=== PATIENT | female | born 1955 | race Caucasian/White ===

== ENCOUNTER → 2023-11-30 10:27 | Outpatient (REF) | payer OTHER, SELFPAY | LOC: WDC 10:27 | PROVIDERS: ATTENDING PHYSICIAN Nurse Practitioner Adult Health; FAMILY PHYSICIAN Family Medicine | DX: Z12.31 Encounter for screening mammogram for malignant neoplasm of breast (principal) | CPT/HCPCS: 77063; 77067 ==

== ENCOUNTER 2024-03-20 09:57 | Emergency (ER) | payer OTHER, SELFPAY ==
[2024-03-20 10:21] VITALS: BP 112/78
[2024-03-20 10:50] VITALS: BP 128/74
--- NOTE | 2024-03-20 11:12 | EDRN ---
Labs drawn, pt asking to lay down, situated in wheelchair and assisted her with elevating her legs.
[2024-03-20 11:22] LABS: % Basophils 0.2 % (0-2); % Eosinophils 0.3 % (0-6); % Immature Granulocytes 0.3 % (0-0.5); % Monocytes 3.8 % (1.7-9.3); % Neutrophils 93.4 % (42.2-75.2); Absolute Lymphocytes 0.2 10^3/uL (1.2-3.4); Absolute Monocytes 0.4 10^3/uL (0.1-0.6); Absolute Neutrophils 10.2 10^3/uL (1.4-6.5); Hematocrit 41.3 % (37.0-47.0); Hemoglobin 13.8 g/dL (12.0-16.0); Mean Corp Hgb Conc. 33.4 g/dL (33.0-37.0); Mean Corpuscular Hgb 29.8 pg (27.0-31.0); Mean Corpuscular Volume 89.2 fL (81.0-99.0); Mean Platelet Volume 9.1 fL (7.4-10.4); Nucleated Red Blood Cells % 0 %; Platelet Count 224 10^3/uL (130-400); Red Blood Cell Count 4.63 10^6/uL (4.20-5.40); Red Cell Dist. Width 12.7 % (11.5-14.5); White Blood Cell Count 10.9 10^3/uL (4.8-10.8)
[2024-03-20 11:33] LABS: ALT (SGPT) 20 U/L (0-35); AST (SGOT) 28 U/L (14-36); Albumin 4.3 g/dl (3.5-5.0); Alkaline Phosphatase 82 U/L (38-126); Blood Urea Nitrogen 20 mg/dl (7-17); Carbon Dioxide 24 mmol/L (22-30); Chloride 106 mmol/L (98-107); Glucose 138 mg/dl (70-99); Lipase 64 U/L (23-300); Potassium 3.6 mmol/L (3.5-5.1); Sodium 139 mmol/L (135-145); Total Bilirubin 0.9 mg/dl (0.2-1.3); Total Protein 6.7 g/dl (6.3-8.2); eGFR > 60.00
[2024-03-20 12:36] VITALS: BP 128/69
== END 2024-03-20 12:36 | disposition left against medical advice (07) ==
LOC: EMR 09:57
PROVIDERS: EMERGENCY PHYSICIAN Emergency Medicine
DX: R11.2 Nausea with vomiting, unspecified (principal); R19.7 Diarrhea, unspecified; Z53.21 Procedure and treatment not carried out due to patient leaving prior to being seen by health care provider
CPT/HCPCS: 80053; 83690; 85025

== ENCOUNTER → 2024-09-21 10:53 | Outpatient (REF) | payer OTHER, SELFPAY | LOC: PAVMRI 10:53 | PROVIDERS: ATTENDING PHYSICIAN Orthopaedic Surgery; FAMILY PHYSICIAN Family Medicine | DX: M25.561 Pain in right knee (principal) | CPT/HCPCS: 73721 ==

== ENCOUNTER → 2024-11-07 08:41 | Outpatient (REF) | payer OTHER, SELFPAY ==
[2024-11-07 09:17] LABS: Hematocrit 42.7 % (37.0-47.0); Hemoglobin 13.6 g/dL (12.0-16.0); Mean Corp Hgb Conc. 31.9 g/dL (33.0-37.0); Mean Corpuscular Volume 91.0 fL (81.0-99.0); Nucleated Red Blood Cells % 0 %; Platelet Count 221 10^3/uL (130-400); Red Cell Dist. Width 13.1 % (11.5-14.5)
[2024-11-07 10:06] LABS: Blood Urea Nitrogen 17 mg/dl (7-17); Calcium 8.9 mg/dl (8.4-10.2); Carbon Dioxide 25 mmol/L (22-30); Chloride 107 mmol/L (98-107); Glucose 63 mg/dl (70-99); Potassium 4.1 mmol/L (3.5-5.1); Sodium 140 mmol/L (135-145); eGFR > 60.00
== END ==
LOC: RCS 08:41
PROVIDERS: ATTENDING PHYSICIAN Orthopaedic Surgery; FAMILY PHYSICIAN Family Medicine
DX: Z01.818 Encounter for other preprocedural examination (principal)
CPT/HCPCS: 36415; 80048; 85025; 93005

== ENCOUNTER 2024-11-28 06:31 | Day surgery (SDC) | payer OTHER, SELFPAY | END 2024-11-28 10:55 | disposition home or self-care (01) | LOC: GI 06:31 | PROVIDERS: ATTENDING PHYSICIAN Internal Medicine Gastroenterology | DX: Z12.11 Encounter for screening for malignant neoplasm of colon (principal); K63.5 Polyp of colon; K57.30 Diverticulosis of large intestine without perforation or abscess without bleeding; Q43.8 Other specified congenital malformations of intestine; K64.8 Other hemorrhoids; K29.70 Gastritis, unspecified, without bleeding; K31.A11 Gastric intestinal metaplasia without dysplasia, involving the antrum; K22.89 Other specified disease of esophagus; K31.89 Other diseases of stomach and duodenum; Z86.0101 Personal history of adenomatous and serrated colon polyps | CPT/HCPCS: 45385; 43238; 88305; 88342 ==

== ENCOUNTER → 2024-12-05 09:29 | Outpatient (REF) | payer OTHER, SELFPAY | LOC: WDC 09:29 | PROVIDERS: ATTENDING PHYSICIAN Nurse Practitioner Adult Health; FAMILY PHYSICIAN Family Medicine | DX: M85.89 Other specified disorders of bone density and structure, multiple sites (principal); Z12.31 Encounter for screening mammogram for malignant neoplasm of breast | CPT/HCPCS: 77063; 77067; 77080 ==

== ENCOUNTER 2024-12-19 09:07 | Outpatient (RCR) | payer OTHER, SELFPAY | END 2024-12-19 23:59 | disposition home or self-care (01) | LOC: RPT 09:07 | PROVIDERS: ATTENDING PHYSICIAN Orthopaedic Surgery; FAMILY PHYSICIAN Family Medicine | DX: Z47.1 Aftercare following joint replacement surgery (principal); Z73.6 Limitation of activities due to disability; R26.2 Difficulty in walking, not elsewhere classified; M62.81 Muscle weakness (generalized); M25.561 Pain in right knee; R26.89 Other abnormalities of gait and mobility; Z96.651 Presence of right artificial knee joint | CPT/HCPCS: 97110; 97161; 97530 ==

== ENCOUNTER 2025-01-20 09:18 | Outpatient (RCR) | payer OTHER, SELFPAY | END 2025-01-20 23:59 | disposition home or self-care (01) | LOC: RPT 09:18 | PROVIDERS: ATTENDING PHYSICIAN Orthopaedic Surgery; FAMILY PHYSICIAN Family Medicine | DX: Z47.1 Aftercare following joint replacement surgery (principal); Z73.6 Limitation of activities due to disability; R26.2 Difficulty in walking, not elsewhere classified; M62.81 Muscle weakness (generalized); M25.561 Pain in right knee; Z96.651 Presence of right artificial knee joint; R26.89 Other abnormalities of gait and mobility | CPT/HCPCS: 97010; 97110; 97116; 97530 ==

== ENCOUNTER 2025-02-13 09:21 | Outpatient (RCR) | payer OTHER, SELFPAY | END 2025-02-13 23:59 | disposition home or self-care (01) | LOC: RPT 09:21 | PROVIDERS: ATTENDING PHYSICIAN Orthopaedic Surgery; FAMILY PHYSICIAN Family Medicine | DX: Z47.1 Aftercare following joint replacement surgery (principal); Z96.651 Presence of right artificial knee joint; Z73.6 Limitation of activities due to disability; R26.2 Difficulty in walking, not elsewhere classified; M62.81 Muscle weakness (generalized); R26.89 Other abnormalities of gait and mobility; M25.561 Pain in right knee | CPT/HCPCS: 97010; 97110; 97112; 97530 ==

== ENCOUNTER 2025-02-19 04:29 | Inpatient (IN) | payer OTHER, SELFPAY ==
[2025-02-18 21:27] VITALS: BP 115/73
[2025-02-18 21:46] VITALS: BP 104/53
[2025-02-18 22:00] VITALS: BP 101/61
[2025-02-18] MEDS: TYLENOL 1000 MG PO (22:25)
[2025-02-18] MEDS: ZOFRAN 4 MG IV (22:25)
[2025-02-18] MEDS: NSS 2000 IV (22:25)
--- NOTE | 2025-02-18 22:26 | ED.GENMED ---
History of Present Illness
General
Chief Complaint: Fever
Source: patient and family
Exam Limitations: none
Time Seen by Provider: 02/18/25 21:48
History of Present Illness
History of Present Illness:
69-year-old female for 5 days of fever body aches headache nausea back pain mild cough decreased decreased urine output, has not been vaccinated for the flu or COVID started Tamiflu today took 1 dose
Past History
Past History
ED Past Medical History: GERD and Other (Diverticulitis, Pollack's esophagus, hysterectomy, tonsil and adenoidectomy, partial thyroidectomy)
ED Past Surgical History: Gynecological (Hysterectomy), Orthopedic (Right total knee 9 weeks ago), Tonsilectomy and Other (Partial thyroidectomy)
Social History
Tobacco: Non-smoker
Alcohol: None
Drug: None
Personal:
Living: with family
Employment: Employed
Family History
Family History: Other
Review of Systems
Review of Systems
All Other Systems: Not applicable
Constitutional: Reports fever and fatigue
EENT: Denies sore throat
Respiratory: Reports cough; Denies trouble breathing
Cardiac: Reports no symptoms
ABD/GI: Reports nausea; Denies abdominal pain or vomiting
: Reports flank pain
Musculoskeletal: Reports muscle stiffness; Denies joint pain
Neurological: Reports headache and weakness
Endocrine: Reports no symptoms
Hematologic/Lymphatic: Reports no symptoms
Psychiatric: Reports no symptoms
Phy Exam
Physical Exam
Physical Exam:
Physical Exam
General: Nontoxic 69-year-old female clear mental status
Neck: Lips are slightly dry
Heart: Tachycardic
Lungs: No wheeze
Abdomen: Soft
Neuro: alert and oriented. no focal neurological deficits
Skin: no rash
Psychiatric: well kept. interactive and cooperative
Extremities: Right total knee scar clean dry and intact no pain to range of motion of the knee no calf pain bilateral
Course
Orders/Labs/Results
Orders:
Orders
02/18/25 21:31
Electrocardiogram (*1) Urgent
Reason for Study: Chest Pain
02/18/25 21:32
EKG- Treatment ONCE
02/18/25 22:19
0.9% Sodium Chloride 1000 ml [Nss] 2,000 ml IV BOLUS
Acetaminophen [Tylenol] 1,000 mg PO NOW STA
Ondansetron Injectable [Zofran] 4 mg IV NOW STA
02/18/25 22:20
Urinalysis Reflex To Culture Urgent
Date Specimen was Collected: 02/18/25
Time Specimen was Collected: 22:22
CR Chest - 2 Views Urgent
Comment:
Reason For Exam: fever
02/18/25 22:27
CMP [Comprehensive Metabolic Panel] Urgent
COVID-19 Antigen Urgent
Source: Nasal Swab
Complete Blood Count/With Diff Urgent
Lipase Urgent
Comment: ADD ON
Influenza A+B Rapid Molecular Urgent
CINTIA Source: Nasal Swab
Specimen Description:
02/18/25 23:04
Add On- LAB Urgent
Tests Added?: lipase
US Abdomen Complete/Upper Urgent
Comment:
Reason For Exam: Fever elevated LFTs
02/19/25 01:06
CT Abd/pelvis W Iv Cont Urgent
Comment:
Reason For Exam: fever low bp
02/19/25 01:20
Ondansetron Injectable [Zofran] 4 mg IV NOW STA
Piperacillin/Tazo 3.375 Gram [Zosyn] 3.375 gram in 50 ml IV NOW
02/19/25 01:32
Lactic Acid Q4H
Comment: CANCEL 2nd LACTIC ACID IF 1st LACTIC ACID IS LESS THAN 2
Blood Culture Q30M
CINTIA Source: Blood/Venous
Specimen Description:
Blood Culture Q30M
CINTIA Source: Blood/Venous
Specimen Description:
02/19/25 05:30
Lactic Acid Q4H
Comment: CANCEL 2nd LACTIC ACID IF 1st LACTIC ACID IS LESS THAN 2
Abnormal Lab Results
02/18/25
22:27
Plt Count 112 L 10^3/uL
(130-400)
Absolute Lymphs (auto) 0.3 L 10^3/uL
(1.2-3.4)
Immature Gran % 0.6 H %
(0-0.5)
Neutrophils % 85.9 H %
(42.2-75.2)
Lymphocytes % 4.4 L %
(20.5-51.1)
Sodium 130 L mmol/L
(135-145)
Glucose 100 H mg/dl
(70-99)
AST 129 H U/L
(14-36)
ALT 138 H U/L
(0-35)
Alkaline Phosphatase 280 H U/L
(38-126)
Total Protein 6.2 L g/dl
(6.3-8.2)
Lipase 448 H U/L
(23-300)
02/18/25 22:27
02/18/25 22:27
Vital Signs
Initial and Last Documented VS:
Initial Vital Signs
Temp Pulse Resp BP Pulse Ox
99.2 F 128 20 115/73 99
02/18/25 21:27 02/18/25 21:27 02/18/25 21:27 02/18/25 21:27 02/18/25 21:27
Last Documented Vital Signs
Temp Pulse Resp BP Pulse Ox
99.2 F 102 34 88/51 97
02/18/25 21:27 02/18/25 22:38 02/18/25 22:38 02/18/25 23:00 02/19/25 00:20
MDM/Problems Addressed
Differential Diagnosis Includes:
Influenza COVID pneumonia viral syndrome doubt [employer]PER[employer] infection
MDM/Problems Addressed:
Fever
*Radiology
Radiology exam reviewed: radiology read reviewed
*Pulse Oximetry
SaO2: 98
Oxygen Mode of Delivery: Room air
Patient hypoxic: no
*Systems Applications Programming Lead Interpretation
Rate: tachycardiac
Interpretation: abnormal
Heart Rate: 120
Rhythm: sinus
*Critical Care Note
Total Time (30-74mins, 75-104mins- exclusive of procedures): 30
Update Note
Update Note:
Update, ultrasound report noted chest x-ray noted formal report pending labs are noted awaiting urinalysis
2:20 AM patient with hypotension in the 80s responding to fluids still around 100 systolic after 2 L cultures have been sent urinalysis obtained will check CT of the abdomen to rule out anything intra-abdominal he this point I believe it would be
prudent to admit her to the hospital for sepsis syndrome
ED Attending Note
-
Portions of this chart may have been created with voice recognition software.� Occasional wrong word or��sound alike� substitutions may have occurred due to the inherent limitations of voice recognition software.
Discharge Plan
Departure
Patient Disposition: Admit
Date of Disposition: 02/19/25
Time of Disposition: 02:26
Admit to: IMU
Presentation/result/management discussed w/ accepting MD/DO: Hospitalist
Patient with high blood pressure during this ER visit?: No
Condition: Good
Discharge Problem:
Sepsis syndrome
Prescriptions:
No Action
multivitamin [Daily Multiple] 1 EACH tablet
1 ea PO DAILY
pantoprazole 40 MG tablet,delayed release (DR/EC)
40 mg PO DAILY PRN (Reason: indigestion)
ondansetron HCl 4 MG tablet
4 mg PO TIDPRN PRN (Reason: nausea and vomiting) Qty: 10 0RF
lorazepam 0.5 MG tablet
0.25 mg PO PRN PRN (Reason: anxiety)
ondansetron 4 MG tablet,disintegrating
4 mg PO TIDPRN PRN (Reason: nausea/vomiting) Qty: 12 0RF
Referrals:
Paulino Guthrie MD [Family Provider, Family Practice]
Interventions
Interventions:
*Risk Screen - Suicide Last Done: 02/18/25 21:27
*General Assessment Last Done: 02/18/25 22:02
*Neglect/Abuse Screening Last Done: 02/18/25 21:27
ED- Neurological Assessment Last Done: 02/18/25 22:02
ED-Skin Assessment Last Done: 02/19/25 00:30
Discharge Date and Time
Print Language: BULGARIAN
[2025-02-18 22:47] VITALS: BP 91/56
[2025-02-18 22:51] LABS: Hematocrit 39.6 % (37.0-47.0); Hemoglobin 13.4 g/dL (12.0-16.0); Mean Corp Hgb Conc. 33.8 g/dL (33.0-37.0); Mean Corpuscular Volume 83.7 fL (81.0-99.0); Nucleated Red Blood Cells % 0 %; Platelet Count 112 10^3/uL (130-400); Red Cell Dist. Width 13.4 % (11.5-14.5)
[2025-02-18 22:59] LABS: ALT (SGPT) 138 U/L (0-35); AST (SGOT) 129 U/L (14-36); Albumin 3.5 g/dl (3.5-5.0); Alkaline Phosphatase 280 U/L (38-126); Blood Urea Nitrogen 16 mg/dl (7-17); Calcium 8.8 mg/dl (8.4-10.2); Carbon Dioxide 26 mmol/L (22-30); Chloride 101 mmol/L (98-107); Glucose 100 mg/dl (70-99); Potassium 3.9 mmol/L (3.5-5.1); Sodium 130 mmol/L (135-145); Total Protein 6.2 g/dl (6.3-8.2); eGFR > 60.00
[2025-02-18 23:00] VITALS: BP 88/51
[2025-02-18 23:05] LABS: COVID-19 Antigen Negative (Negative)
[2025-02-18 23:19] LABS: Lipase 448 U/L (23-300)
[2025-02-19] VITALS (13 sets, daily range): BP systolic 89–120; BP diastolic 56–70; PULSE 93–107; BMI 23.5
[2025-02-19] MEDS: ZOFRAN 4 MG IV ×2 (01:39→06:04)
[2025-02-19] MEDS: ZOSYN 50 IV ×4 (01:39→20:00)
[2025-02-19 02:28] LABS: Urine Character Clear (Clear)
[2025-02-19 02:52] LABS: Urine Red Blood Cell 0-2 /HPF (0-2)
[2025-02-19 02:53] LABS: Urine Squamous Cell 16-20 /LPF (Few)
--- NOTE | 2025-02-19 03:57 | HPS.HSE ---
Family Physician
-
Family Physician: Paulino Guthrie
Chief Complaint
-
Fever, Myalgias
History of Present Illness
Patient is a 69y F with PMH significant for arthritis and anxiety who presents to ED complaining of fevers / chills, sweats, nausea and diffuse myalgias. Patient states that her symptoms started on Thursday evening. She has had fevers / chills
and diaphoresis each evening since that time. She has been taking Tylenol ATC with minimal improvement in her symptoms. She complains of pain all over - including headache, back pain and myalgias - especially the legs / thighs. She complains of
severe nausea with multiple episodes of dry heaves but no actual emesis. She has had few paroxysms of non-productive cough. She complains of dry mouth and notes that she has been drinking a lot of water to try and stay hydrated. She has no been
eating much. No diarrhea, bloody stools. No dysuria, frequency, etc.
No known sick contacts. No recent travel.
Patient contacted her PCP and received a Rx for Tamiflu based on her symptoms. She took a single dose of this on Thursday AM.
Patient underwent R TKA about 9 weeks ago (Dr. Reid). She was recovering well until this incident. She denies any specific increase in R knee pain, redness, etc. She has completed her post-op ASA course for DVT prevention.
Patient was initially hypotensive in the ED with systolic blood pressure of 88. She responded to IVF resuscitation thus far.
Medical History
Past Medical History
Past Medical History: Reports Other
Additional Past Medical History:
Osteoarthritis
Osteopenia
Anxiety
GERD / Pollack's Esophagus
Past Surgical History: Reports Other
Additional Past Surgical History:
R TKA (9 weeks ago - Dr. Reid)
L TKA
T&A
CLAIRE
Breast Biopsies (multiple) - all negative
Left Thyroidectomy
Social History
Tobacco: Former Smoker (Quit smoking 35 years ago.)
Alcohol: Occasional
Drug: None
Family History
Family History: Not pertinent
Allergies / Home Medications
Allergies reflects when Allergies were last updated in [facility].
Home Medications with original date entered in [facility]
Allergy/Medication List:
Allergies
Allergy/AdvReac Type Severity Reaction Status Date / Time
No Known Allergies Allergy Verified 03/20/24 10:23
Home Medications
lorazepam 0.5 mg tablet 0.25 mg PO PRN PRN anxiety 06/05/19
diclofenac sodium 75 mg tablet,delayed release 75 mg PO BIDPRN PRN Pain 02/19/25
tramadol 50 mg tablet 50 mg PO DAILYPRN PRN Pain 02/19/25
Review of Systems
-
History Source: Patient
A 12 point ROS was completed and negative except as noted: Yes
Constitutional: Reports Fever, Fatigue and Chills
EENT: Denies Sore Throat or Runny Nose
Respiratory: Reports Cough; Denies Hemoptysis or Trouble Breathing
Cardiac: Reports Diaphoresis; Denies Chest Pain or Palpitations
Abdomen/GI: Reports Nausea and Anorexia; Denies Abdominal Pain, Vomiting, Diarrhea or Constipated
: Denies Dysuria, Frequency or Flank Pain
Musculoskeletal: Reports Muscle Pain; Denies Joint Pain or Joint Swelling
Neurological: Reports Headache; Denies Dizzy
Psych: Denies Depression or Anxiety
Physical Exam
Vital Signs
Vital Signs
Temp Pulse Resp BP Pulse Ox
98.8 F 102 34 100/56 98
02/19/25 03:23 02/18/25 22:38 02/18/25 22:38 02/19/25 02:13 02/19/25 02:30
Physical Exam
General: Other (69y F in no acute distress.)
HEENT: Other (Dry MM.)
Respiratory: Clear; No Wheezes, Rales or Rhonchi
Cardiac: S1/S2 and Tachycardia; No Murmur
GI: Soft, Non Distended, Normal Bowel Sounds and Other (Mild lower abdominal tenderness without rebound / guarding.)
Musculoskeletal: No Clubbing, No Cyanosis, No Edema and Other (R TKA site appears well-healed. No erythema, induration, etc. Good ROM at the R knee.)
Neuro: AO x 3 and Nonfocal/grossly intact
Laboratory Results
-
02/18/25 22:27
02/18/25 22:
Laboratory Results
Lactic Acid Cancelled 02/19/25 05:30
Total Bilirubin 1.0 mg/dl (0.2-1.3) 02/18/25 22:
AST 129 U/L (14-36) H 02/18/25 22:
ALT 138 U/L (0-35) H 02/18/25 22:
Alkaline Phosphatase 280 U/L (38-126) H 02/18/25 22:
Lipase 448 U/L (23-300) H 02/18/25 22:
Impression/Plan
-
A/P: Patient is a 69y F with PMH significant for anxiety and arthritis who presents to ED complaining of fevers, chills, nausea and myalgias x several days.
Febrile Illness
Clinical Sepsis
Abnormal LFTs
Mild Thrombocytopenia
- Admit for further evaluation and treatment.
- Patient presents with febrile illness (102 repeatedly at home). Evidence of organ dysfunction in the form of hypotension requiring fluid resuscitation and borderline thrombocytopenia.
- No clear source identified thus far. Symptoms would seem to suggest enteritis / GI origin versus generalized viral syndrome.
- COVID / Flu are negative in the ED.
- CXR, CT A/P and US Abd all unremarkable.
- Urinalysis not suggestive of infection.
- Will check R knee x-ray - though it does not appear infected by exam.
- Check blood parasite smear and hepatitis panels given abnormal LFTs / thrombocytopenia.
- Continue empiric abx for now pending clinical improvement, culture data, etc.
- IVF support +/- pressor support if needed to maintain perfusion.
- Infectious Disease evaluation for additional recommendations.
- Follow for any new / focal complaints. Follow fever curve.
Mild Hyponatremia
- ? ADH release secondary to persistent nausea.
- Antiemetics, IVFs, etc. Follow for improvement.
Arthritis
- Stable. Continue PRN pain control.
Anxiety
- Stable. Continue PRN lorazepam.
DVT Prophylaxis: Check US to rule out DVT given recent orthopedic surgery. Lovenox.
Code Status: Full
--- NOTE | 2025-02-19 05:30 | PTCARENOTE ---
Pt. arrived from [facility], AAO x 3, vs stable, ST on monitor, IVF's infusing, call rojas within reach.
[2025-02-19] MEDS: VANCOCIN 540 MG IV (06:05)
[2025-02-19] MEDS: NSS 1000 IV ×2 (06:06→17:26)
[2025-02-19 06:31] LABS: Hematocrit 39.1 % (37.0-47.0); Hemoglobin 12.8 g/dL (12.0-16.0); Mean Corp Hgb Conc. 32.7 g/dL (33.0-37.0); Mean Corpuscular Volume 84.8 fL (81.0-99.0); Platelet Count 117 10^3/uL (130-400); Red Cell Dist. Width 13.6 % (11.5-14.5)
[2025-02-19 06:42] LABS: ALT (SGPT) 127 U/L (0-35); AST (SGOT) 111 U/L (14-36); Albumin 3.0 g/dl (3.5-5.0); Alkaline Phosphatase 246 U/L (38-126); Blood Urea Nitrogen 12 mg/dl (7-17); Calcium 8.3 mg/dl (8.4-10.2); Carbon Dioxide 24 mmol/L (22-30); Chloride 104 mmol/L (98-107); Estimated Creatinine Clearance 82 ml/min; Glucose 87 mg/dl (70-99); Potassium 3.8 mmol/L (3.5-5.1); Sodium 133 mmol/L (135-145); Total Protein 5.5 g/dl (6.3-8.2); eGFR > 60.00
--- NOTE | 2025-02-19 07:36 | PHA.VAN.IN ---
Assessment
- Assessment
Renal Function: Appears similar to baseline
Concomitant Antimicrobials: zosyn
AUC Dosing Plan
- Dosing Variables
Dosing Weight (kg): 66.03
Dosing CrCl (ml/min): 82
Vd coefficient (L/kg): 0.7
- Empiric Dosing
Initial / Loading Dose: 2000mg
Maintenance Regimen: 750mg q12h
Estimated AUC (mcg*h/mL): 464
Estimated Peak (mcg*h/mL): 27.9
Estimated Trough (mcg/ml): 12.6
Estimated Half Life (H): 9.6
- Monitoring
No levels ordered at this time: consider at steady state
Pharmacokinetics Vancomycin I
- -
Patient Age: 69
Patient Sex: Female
Vancomycin Day #: 1
Indication: Bacteremia
Requesting Provider: Dr. Galan
Pertinent Antimicrobial Allergies:
nkda
Height / Weight:
Height 5 ft 6 in
Actual Weight 66.026 kg
IBW in k.3
- Vital Signs / Lab Results
Temp Pulse Resp BP Pulse Ox
99.7 F 102 22 104/64 96
02/19/25 05:37 02/19/25 05:37 02/19/25 05:37 02/19/25 05:37 02/19/25 05:37
Lab Results - Hematology
02/18/25 02/19/25
22:27 05:57
WBC 7.2 5.9
Lab Results - Chemistry
02/18/25 02/19/25
22:27 05:56
BUN 16 12
Creatinine 0.6 0.6
Estimated Creat Clear 82
Albumin 3.5 3.0 L
02/19/25 02/19/25
01:32 05:30
Lactic Acid 0.8 Cancelled
Lab Results - Urine
02/19/25
02:23
Urine Nitrite (Reflex) Negative
Leukocyte Esterase Rfl Negative
Urine WBC (Reflex) 6-10
Ur Squamous Epith Cells 16-20
Urine Bacteria (Reflex) Moderate A
Microbiology Results
02/18/25 22:27 Influenza Types A & B ([facility]) - Final
Nasal Swab Negative for Influenza A & B, NAAT
Negative results must be combined with clinical observations
and patient history.
Nucleic Acid Amplification test (NAAT)performed on the
[employer] platform.
[2025-02-19 08:27] LABS: Hepatitis B Surface Antigen Negative (Negative)
[2025-02-19 08:44] LABS: Hepatitis C Antibody Negative (Negative)
--- NOTE | 2025-02-19 09:55 | W.PN.HOSP.TC ---
Today's Communication/Plan
-
see AP
Assessment / Plan
Assessment / Plan
HPI: 69 yo F with PMH significant for arthritis and anxiety who p/w fevers / chills, sweats, nausea and diffuse myalgias. Patient states that her symptoms started on Thursday evening. She has had fevers / chills and diaphoresis each evening since
that time. She has been taking Tylenol ATC with minimal improvement in her symptoms. She complains of pain all over - including headache, back pain and myalgias - especially the legs / thighs. She complains of severe nausea with multiple episodes
of dry heaves but no actual emesis. She has had few paroxysms of non-productive cough. She complains of dry mouth and notes that she has been drinking a lot of water to try and stay hydrated. She has no been eating much.
No diarrhea, bloody stools. No dysuria, frequency, etc. No known sick contacts. No recent travel.
Patient contacted her PCP and received a Rx for Tamiflu based on her symptoms. She took a single dose on Thursday AM.
Patient underwent R TKA about 9 weeks ago (Dr[address] Reid). She was recovering well until this incident. She denies any specific increase in R knee pain, redness, etc. She has completed her post-op ASA course for DVT prevention.
Patient was initially hypotensive in the ED with systolic blood pressure of 88. She responded to IVF resuscitation thus far.
A/P:
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
# Clinical Sepsis
# Abnormal LFTs
# Mild Thrombocytopenia
Patient presents with febrile illness (102 repeatedly at home). Evidence of organ dysfunction in the form of hypotension requiring fluid resuscitation and borderline thrombocytopenia.
No clear source identified thus far. Symptoms would seem to suggest enteritis / GI origin versus generalized viral syndrome.
COVID / Flu are negative. CXR, CT A/P and US Abd all unremarkable.
Follow formal CT AP report.
Urinalysis not suggestive of infection.
R knee x-ray showed Moderate anterior soft tissue swelling and subcutaneous edema.
Follow BL LE US
Check blood parasite smear, follow blood cultures, urine culture
hepatitis panels showed negative antibody, but pending hep A IgM Ab
Continue empiric abx with Vanc/Zosyn for now
Cont IVF support +/- pressor support if needed to maintain perfusion.
Infectious Disease CS for additional recommendations.
Follow for any new / focal complaints. Follow fever curve.
# Mild Hyponatremia
? ADH release secondary to persistent nausea.
Antiemetics, IVFs, etc.
Follow for improvement.
Sodium level 130 -> 133 today
# Arthritis
Stable. Continue PRN pain control.
# Anxiety
Stable. Continue PRN lorazepam.
DVT Prophylaxis: Follow US to rule out DVT given recent orthopedic surgery. Lovenox SQ for now.
Code Status: Full
DW RN
Anticipated Discharge: 24 - 48 hours
Subjective/Interval History
-
Date of Service: February 19, 2025
Objective Data
-
Labs:
Laboratory Results
02/18/25 02/19/25 02/19/25
22:27 05:56 05:57
WBC 7.2 5.9
Hgb 13.4 12.8
Hct 39.6 39.1
Plt Count 112 L 117 L
Sodium 130 L 133 L
Potassium 3.9 3.8
Chloride 101 104
Carbon Dioxide 26 24
BUN 16 12
Creatinine 0.6 0.6
Glucose 100 H 87
Calcium 8.8 8.3 L
Total Bilirubin 1.0 0.7
AST 129 H 111 H
ALT 138 H 127 H
Alkaline Phosphatase 280 H 246 H
Vital Signs:
Vital Signs
Temp Pulse Resp BP Pulse Ox
37.1 C 102 16 89/66 98
02/19/25 08:15 02/19/25 08:15 02/19/25 08:15 02/19/25 08:15 02/19/25 08:15
Review of Systems
-
History Source: Patient
Constitutional: Reports Fever (at home), Fatigue, Chills, Weakness and Other (generalized pain)
Abdomen/GI: Reports Nausea and Other (dry heaving at home)
Physical Exam
-
General: Well Developed, Well Nourished, No Apparent Distress, Comfortable and Conversant; Negative Respiratory Distress
HEENT: Normocephalic, Atraumatic, Nose Appears Normal and Ears Appear Normal; Negative Oxygen
Respiratory: Clear to Auscultation and Non Labored Respirations; Negative Wheezes, Crackles or Accessory Resp Muscle Use
Cardiac: Regular Rhythm and S1/S2
GI: Soft, Nontender, Nondistended and Normal Bowel Sounds
Skin: Warm and Dry
Neuro: Awake, Alert, Oriented and AO x 3
Psych: Calm and Intact Judgement/Insight
Data Reviewed
-
Ultrasound: Report Reviewed by me
Labs: Labs Reviewed by me
--- NOTE | 2025-02-19 12:05 | CM ---
Patient seen bedside, initial assessment completed. Patient is a 69y F with PMH significant for arthritis and anxiety who presents to ED complaining of fevers / chills, sweats, nausea and diffuse myalgias.
Patient resides w/ spouse in a single story home, 1 step to enter. Patient is independent in ambulation, no device required. Independent w/ ADLs and personal care. Patient has grab bar and shower chair in bathroom. Denies SNF/HC hx. Current w/ OP PT
at ambulatory center twice a week following knee replacement.
Address, point of contact and insurance verified
PCP: Paulino Guthrie
Pharmacy: [facility]
Plan: Home, no needs anticipated
--- NOTE | 2025-02-19 12:30 | CON.ID ---
Consultation
-
Date/Time Consultation Requested: 02/19/2025 0530
Date/Time Consultation Performed: 02/19/2025 1230
Requesting Provider: Dr. Galan
Performing Provider: Dr. Martin
Reason for Consultation: Fever; transaminitis
Chief Complaint / Past History
History of Present Illness
Niyah Castro is a 69-year-old female being evaluated at the request of Dr. Galan in regards to fevers, chills and sweats. History is obtained from chart review, along with patient interview.
Patient reports that symptomatology started approximately 5 days ago, and she has had ongoing fevers, chills and diaphoresis each evening since then. She admits to fevers to 102.8 degrees. She notes pain and bodyaches throughout her body. She
admits to headache and myalgias especially in the legs and thighs. She contacted her PCP and received prescription for Tamiflu based upon her symptoms and she took a single dose yesterday AM. She notes that she has been taking Tylenol 1 gm every
4-5 hours through the week.
She notes no sick contacts. She notes no ticks on her body. She does have a dog, but the lawn and the dog are treated for ticks. She denies any travel.
At presentation she was noted to be 100.4 degrees, but temperatures have improved since then. She did not have an elevated white count, but did have a left shift. She has been started on empiric antibiotics, and Infectious Diseases is asked to
comment on further antibiotic therapy.
Past History
Additional Past Medical History:
GERD
Diverticulitis
Pollack's esophagus
Osteoarthritis
Anxiety
Additional Past Surgical History:
Hysterectomy
Tonsillectomy
Partial thyroidectomy
Right TKA
Allergy History:
No Known Allergies Allergy (Verified 03/20/24 10:23)
Medications Reviewed: Yes
Current Antibiotics:
Vancomycin 750 mg IV q.12 hours
Zosyn 3.375 gm IV q.6 hours
Social History
Tobacco: Non-Smoker
Alcohol: None
Drug: None
Living: With Family
Employment: Employed
Family History
Family History: Not Pertinent
Review of Systems
Vital Signs
Temp Pulse Resp BP Pulse Ox
99.1 F 93 12 99/61 96
02/19/25 11:08 02/19/25 11:08 02/19/25 11:08 02/19/25 11:08 02/19/25 11:08
Physical Exam
Physical Exam
Constitutional: No Acute Distress, Comfortable and Non-toxic
Eyes: No Conjunctival Hemorrhage and Sclera Anicteric
Oral: No Thrush and No Ulcers
Cardiovascular: Regular Rate and S1/S2; Negative S3/S4
Pulmonary: Clear; Negative Wheezes, Rales or Rhonchi
Gastrointestinal: Soft, Non Tender, Non Distended, Normal Bowel Sounds, No Rebound and No Guarding
Genito-Urinary: Negative Moore
Extremities: Negative Edema, Cyanosis, Erythema, Splinter Hemorrhage or Venous Insufficiency
Musculoskeletal: Negative Joint Swelling
Skin: Warm and Dry; Negative Rash or Jaundice
Wound: None
Neurological: Awake, Alert and Oriented
Psychological: Calm
Lab / Diagnostic Study Results
02/19/25 05:57
02/19/25 05:56
Abs Immat Gran (auto) 0.0 10^3/uL (0-0.05) 02/18/25 22:27
Absolute Neuts (auto) 6.2 10^3/uL (1.4-6.5) 02/18/25 22:27
Absolute Lymphs (auto) 0.3 10^3/uL (1.2-3.4) L 02/18/25 22:27
Absolute Monos (auto) 0.5 10^3/uL (0.1-0.6) 02/18/25 22:27
Absolute Basos (auto) 0.0 10^3/uL (0-0.2) 02/18/25 22:27
Immature Gran % 0.6 % (0-0.5) H 02/18/25 22:27
Neutrophils % 85.9 % (42.2-75.2) H 02/18/25 22:27
Lymphocytes % 4.4 % (20.5-51.1) L 02/18/25 22:27
Monocytes % 6.9 % (1.7-9.3) 02/18/25 22:27
Eosinophils % 1.9 % (0-6) 02/18/25 22:27
Basophils % 0.3 % (0-2) 02/18/25 22:27
Lactic Acid Cancelled 02/19/25 05:30
Ur Squamous Epith Cells 16-20 /LPF (Few) 02/19/25 02:23
Microbiology Results
Micro:
02/19/25 05:57 Blood Parasites Smear - No parasites seen (Preliminary)
Blood/Venous
02/19/25 02:23 Urine Culture - Pending
Urine
02/19/25 01:32 Blood Culture - Pending
Blood/Venous
02/19/25 01:32 Blood Culture - Pending
Blood/Venous
02/18/25 22:27 Influenza Types A & B ([facility]) - Final
Nasal Swab Negative for Influenza A & B, NAAT
Negative results must be combined with clinical observations
and patient history.
Nucleic Acid Amplification test (NAAT)performed on the
[employer] platform.
Imaging:
02/19/2025 Duplex ultrasound lower extremities: no sonographic evidence for lower extremity DVT
02/19/2025 X-ray right knee: moderate amount of anterior soft tissue swelling and subcutaneous edema. Right total knee arthroplasty in place without radiographic evidence for loosening.
02/19/2025 abdomen/pelvis CT: report pending
02/18/2025 Abdominal ultrasound: mild diffuse liver disease. No sonographic evidence for cholelithiasis, acute cholecystitis or biliary obstruction.
02/18/2025 CXR (2 view): no radiographic evidence for pneumonia or other acute cardiopulmonary disease. Moderate to severe discogenic degenerative disease in the thoracic spine.
Assessment / Plan
Fever
Normal white count with left shift
Myalgias
Elevated LFTs
- infection related? from acetaminophen?
GERD
Diverticulitis
Pollack's esophagus
Osteoarthritis
Anxiety
Recommendations:
Given clinical history, doubt MRSA infection; will discontinue further vancomycin.
Continue Zosyn for today.
Follow white count and temperature curve.
Follow pending blood cultures.
Follow LFTs.
[2025-02-19] MEDS: LOVENOX 40 MG SC (17:22)
[2025-02-19] MEDS: ATIVAN 0.25 MG PO (22:23)
[2025-02-20] MEDS: NSS 1000 IV ×2 (01:33→08:58)
[2025-02-20] MEDS: ZOSYN 50 IV ×2 (01:33→08:53)
[2025-02-20 04:00] VITALS: BP 115/67
[2025-02-20] MEDS: TYLENOL 650 MG PO (05:02)
[2025-02-20 05:10] VITALS: BMI 24.0
[2025-02-20 07:59] VITALS: BP 103/66
[2025-02-20 08:14] VITALS: BP 103/66; BP 95/60; BP 99/63; PULSE 93; PULSE 95; PULSE 99
[2025-02-20 11:02] VITALS: BP 104/63
--- NOTE | 2025-02-20 12:10 | W.PN.HOSP.TC ---
Today's Communication/Plan
-
cont abx
LFTs improved
Assessment / Plan
Assessment / Plan
69F with arthritis s/p recent R knee replacement, anxiety p/w fevers / chills, sweats, nausea and diffuse myalgias.
Fever
sepsis ruled out -No clinical end organ dysfunction. Had hypotension 89/66, improved with IVF.
Possible enteritis / GI origin versus generalized viral syndrome.
COVID / Flu are negative. Took 1 dose Tamiflu as outpatient.
CXR, CT A/P and US Abd all unrevealing.
Urinalysis not suggestive of infection.
R knee x-ray showed Moderate anterior soft tissue swelling and subcutaneous edema.
Negative Doppler BLE
Check blood parasite smear negative
BCx/UCX NGTD
hepatitis panels negative
Vanc discontinued
Continue Zosyn
ID consulted, managing antibiotic
Transaminitis
LFTs improving
Abdominal ultrasound reveals mild diffuse liver disease.CT shows mild periportal edema, mild hepatomegaly, GB sludge
Possibly secondary to infection, acute phase reactants
Mild Hyponatremia
Improving with antiemetics, IVFs
Arthritis
S/p recent right knee replacement, stable. Continue PRN pain control.
PT
Anxiety
Stable. Received PRN lorazepam here, reviewed [employer], last Rx for this was 04/2024, will not continue this prescription on discharge.
DVT Prophylaxis: Lovenox SQ
Anticipated Discharge: 24 - 48 hours
Subjective/Interval History
-
Date of Service: February 20, 2025
Patient says she feels better today than yesterday, still feeling weak
Objective Data
-
Labs:
Laboratory Results
02/18/25 02/19/25 02/19/25
22:27 05:56 05:57
WBC 7.2 5.9
Hgb 13.4 12.8
Hct 39.6 39.1
Plt Count 112 L 117 L
Sodium 130 L 133 L
Potassium 3.9 3.8
Chloride 101 104
Carbon Dioxide 26 24
BUN 16 12
Creatinine 0.6 0.6
Glucose 100 H 87
Calcium 8.8 8.3 L
Total Bilirubin 1.0 0.7
AST 129 H 111 H
ALT 138 H 127 H
Alkaline Phosphatase 280 H 246 H
Vital Signs:
Vital Signs
Temp Pulse Resp BP Pulse Ox
97.8 F 78 12 104/63 99
02/20/25 11:02 02/20/25 11:02 02/20/25 11:02 02/20/25 11:02 02/20/25 11:02
I&O
02/19/25 02/20/25 02/21/25
06:59 06:59 06:59
Intake Total 3660 / 3660
Balance 3660 / 3660
Review of Systems
-
All other systems: Reviewed and negative
Physical Exam
-
General: No Apparent Distress
HEENT: Moist Mucous Membranes, Anicteric and PERRLA
Respiratory: Clear to Auscultation and Rales (bases); Negative Wheezes or Rhonchi
Cardiac: Regular Rhythm and S1/S2; Negative Murmur, Rub or Gallop
GI: Soft, Nontender, Nondistended and Normal Bowel Sounds
Musculoskeletal: No Edema and Edema, Right Lower Extrem (trace)
Skin: Warm and Dry; Negative Rash, Ulcers or Lesions
Neuro: Awake and AO x 3
Hematologic / Lymphatic: No Lymphadenopathy
Psych: Calm
Data Reviewed
-
Diagnostic Radiology: Report Reviewed by me
Ultrasound: Report Reviewed by me
Labs: Labs Reviewed by me and Discussed with Patient
--- NOTE | 2025-02-20 14:50 | W.PN.ID1 ---
Date of Service
Date of Service: February 20, 2025
Today's Communication
Discontinue further Zosyn.
Assessment / Plan
Fever
Normal white count with left shift
Myalgias
Elevated LFTs
- infection related? from acetaminophen?
GERD
Diverticulitis
Pollack's esophagus
Osteoarthritis
Anxiety
Recommendations:
Blood cultures negative x 24 hours. Patient afebrile since admission.
LFTs improving ~ ? elevation 2* acetaminophen usage?
Discontinue further Zosyn and observe.
Follow white count and temperature curve.
Follow pending blood cultures.
Follow LFTs.
����������������������������������������������������������
Chief Complaint
-: Fever
Subjective / Review of Systems
Patient seen and examined. Reports feeling somewhat improved today. No fevers since admission noted. Still with some myalgias.
Vital Signs / Physical Exam
Vital Signs
Vital Signs
Temp Pulse Resp BP Pulse Ox
97.8 F 78 12 104/63 99
02/20/25 11:02 02/20/25 11:02 02/20/25 11:02 02/20/25 11:02 02/20/25 11:02
Physical Exam
Constitutional: No Acute Distress, Comfortable and Non-toxic
Eyes: No Conjunctival Hemorrhage and Sclera Anicteric
Cardiovascular: S1/S2; Negative S3/S4
Pulmonary: Clear; Negative Wheezes or Rales
Gastrointestinal: Soft and Non Tender
Neurological: Awake and Alert
Psychological: Calm
Objective Data
Lab Data
Lab Results
02/19/25 05:57
02/19/25 05:56
Estimated Creat Clear 82 ml/min 02/19/25 05:56
Lactic Acid Cancelled 02/19/25 05:30
Total Bilirubin 0.7 mg/dl (0.2-1.3) 02/19/25 05:56
AST 111 U/L (14-36) H 02/19/25 05:56
ALT 127 U/L (0-35) H 02/19/25 05:56
Alkaline Phosphatase 246 U/L (38-126) H 02/19/25 05:56
Most recent labs reviewed.
Micro Results:
02/19/25 02:23 Urine Culture - Final
Urine NO GROWTH
02/19/25 01:32 Blood Culture - Preliminary
Blood/Venous No Growth in 24 hours- Final report to follow
02/19/25 01:32 Blood Culture - Preliminary
Blood/Venous No Growth in 24 hours- Final report to follow
02/19/25 05:57 Blood Parasites Smear - Final
Blood/Venous
02/18/25 22:27 Influenza Types A & B ([facility]) - Final
Nasal Swab Negative for Influenza A & B, NAAT
Negative results must be combined with clinical observations
and patient history.
Nucleic Acid Amplification test (NAAT)performed on the
[employer] platform.
Imaging:
02/19/2025 Duplex ultrasound lower extremities: no sonographic evidence for lower extremity DVT
02/19/2025 X-ray right knee: moderate amount of anterior soft tissue swelling and subcutaneous edema. Right total knee arthroplasty in place without radiographic evidence for loosening.
02/19/2025 abdomen/pelvis CT: report pending
02/18/2025 Abdominal ultrasound: mild diffuse liver disease. No sonographic evidence for cholelithiasis, acute cholecystitis or biliary obstruction.
02/18/2025 CXR (2 view): no radiographic evidence for pneumonia or other acute cardiopulmonary disease. Moderate to severe discogenic degenerative disease in the thoracic spine.
[2025-02-20 15:30] VITALS: BP 104/59
--- NOTE | 2025-02-20 15:30 | PTCARENOTE ---
Patient ambulating in jonas with walker and a steady, slow gait. Patient continues with RLE +1. Pain rating 3/10. Patient states, 'I am feeling much better. I still feel weak and I just want to go home and sleep in my bed.' Physician made aware of
patient's request to go home.
[2025-02-20] MEDS: ZOSYN IV (15:44)
[2025-02-20 16:10] VITALS: BP 146/80
[2025-02-20] MEDS: LOVENOX SC (17:18)
--- NOTE | 2025-02-20 18:54 | W.DCSUMMARY ---
Discharge Summary
Discharge Data
Date of Admission: 02/19/25
Date of Discharge: 02/20/25
Total time spent discharging patient (in min): 40
-
Pending Results: No
Hospital Course
Attending physician on day of discharge:
Priya Ibarra MD
Discharge diagnosis:
Fever of unknown origin
Transaminitis
Secondary diagnoses:
Hyponatremia
Consultations:
Infectious diseases
Procedures:
None
Hospital course:
69F with arthritis s/p recent R knee replacement, anxiety p/w fevers / chills, sweats, nausea and diffuse myalgias. Hypotensive requiring IVF resuscitation. Workup including imaging and labs were unrevealing for source. Was empirically given
Zosyn, but this was discontinued when blood and urine cultures were no growth to date. Pt had elevated LFTs and imaging showed mild diffuse liver disease and hepatitis panel was negative. Patient was advised to follow-up with PCP for further
workup and repeat labs.
Physical exam on discharge:
See note
Discharge disposition:
Home
Discharge Plan
-
Patient Disposition: Home (Routine Discharge)
Discharge Diagnosis/Procedures: Fever of unknown origin
Diet: Regular
Activity: As tolerated
Driving Restrictions: As prior to admission
Blood Work: LFTs - call PCP for bloodwork in 1 week
Referrals:
Garcia Martin, [Active, Infectious Diseases]
Paulino Guthrie MD [Family Provider, [facility]]
Additional Discharge Medication Instructions: You were given antibiotics for fever and to evaluate it you had imaging (chest x-ray, Ct scan of abdomen, x-ray of knee, ultrasound of abdomen and legs) but had no identified source, and you had no
bacteria in the blood or urine. Your antibiotics were stopped. You had abnormal liver enzymes which started to improve on their own, you need repeated lab work (LFTs) within 1 week by your primary care doctor.
Prescriptions:
Continued
lorazepam 0.5 MG tablet
0.25 mg PO PRN PRN (Reason: anxiety)
tramadol 50 mg tablet
50 mg PO DAILYPRN PRN (Reason: Pain)
Discontinued
diclofenac sodium 75 mg tablet,delayed release (DR/EC)
75 mg PO BIDPRN PRN (Reason: Pain)
Discharge Orders:
Discharge Patient (As Directed); Ordered 02/20/25
Ordered By: Priya Ibarra
Discharge Date and Time
Discharge Date/Time: 02/20/25 17:52
Print Language: JAPANESE
== END 2025-02-20 17:52 | disposition home or self-care (01) | DRG 864 ==
LOC: 4 WEST ACU 04:29
PROVIDERS: Emergency Medicine; ADMITTING PHYSICIAN Hospitalist; ATTENDING PHYSICIAN Internal Medicine; CONSULT PHYSICIAN Internal Medicine Infectious Disease; EMERGENCY PHYSICIAN Emergency Medicine; FAMILY PHYSICIAN Family Medicine
DX: R50.9 Fever, unspecified (principal); E87.1 Hypo-osmolality and hyponatremia; D69.6 Thrombocytopenia, unspecified; M19.90 Unspecified osteoarthritis, unspecified site; F41.9 Anxiety disorder, unspecified; K21.9 Gastro-esophageal reflux disease without esophagitis; K22.70 Barrett's esophagus without dysplasia; E89.0 Postprocedural hypothyroidism; M85.80 Other specified disorders of bone density and structure, unspecified site; Z87.891 Personal history of nicotine dependence; Z90.710 Acquired absence of both cervix and uterus; Z96.653 Presence of artificial knee joint, bilateral; Z11.52 Encounter for screening for COVID-19
CPT/HCPCS: 71046; 73560; 74177; 76700; 80048; 80053; 80076; 81003; 81015; 83605; 83690; 84443; 85025; 85027; 86705; 86706; 86709; 86803; 87015; 87040; 87086; 87207; 87340; 87502; 87811; 93005; 93970; 96361; 96365; 96375; 96376; 97110; 97162; 99291; Q9967

== ENCOUNTER 2025-03-13 13:52 | Outpatient (RCR) | payer OTHER, SELFPAY | END 2025-03-13 23:59 | disposition home or self-care (01) | LOC: RPT 13:52 | PROVIDERS: ATTENDING PHYSICIAN Orthopaedic Surgery; FAMILY PHYSICIAN Family Medicine | DX: Z47.1 Aftercare following joint replacement surgery (principal); Z73.6 Limitation of activities due to disability; R26.2 Difficulty in walking, not elsewhere classified; M62.81 Muscle weakness (generalized); M25.561 Pain in right knee; R26.89 Other abnormalities of gait and mobility; Z96.651 Presence of right artificial knee joint | CPT/HCPCS: 97110; 97530 ==